=== PATIENT | female | born 1955 | race Caucasian/White ===

== ENCOUNTER 2022-08-21 17:31 | Emergency (ER) | payer MEDICARE, MEDICAID ==
[~2022-08-21] VITALS: Ht 177 cm; Wt 61.2 kg
[~2022-08-21 17:31] MED LIST: ACHD5005 PO; OMEP10CA2 PO; ONDN4T PO; Oxycodone Hcl/Acetaminophen PO
[2022-08-21] MEDS ORDERED: ONDANSETRON 4 MG/2 ML (SDV) Z0FRAN IVP ONE (17:45)
[2022-08-21 17:58] LABS: BASOPHILS % (AUTO) 1 % (0-10); EOSINOPHILS # (AUTO) 0.1 10^3/uL (0.0-0.3); EOSINOPHILS % (AUTO) 1 % (0-10); HEMATOCRIT 36 % (35-52); HEMOGLOBIN 11.4 g/dL (11.5-16.0); LYMPHOCYTES # (AUTO) 1.2 10^3/uL (1.0-4.0); LYMPHOCYTES % (AUTO) 15 % (12-44); MEAN CORPUSCULAR HEMOGLOBIN 29 pg (25-34); MEAN CORPUSCULAR HGB CONC 32 g/dL (32-36); MEAN CORPUSCULAR VOLUME 91 fL (80-99); MEAN PLATELET VOLUME 10.3 fL (9.0-12.2); MONOCYTES # (AUTO) 0.5 10^3/uL (0.0-1.0); MONOCYTES % (AUTO) 6 % (0-12); NEUTROPHILS # (AUTO) 6.2 10^3/uL (1.8-7.8); NEUTROPHILS % (AUTO) 78 % (42-75); PLATELET COUNT 392 10^3/uL (130-400)
[2022-08-21 18:08] LABS: POTASSIUM 3.9 MMOL/L (3.6-5.0)
[2022-08-21 18:10] LABS: CALCIUM 9.7 MG/DL (8.5-10.1)
[2022-08-21 18:11] LABS: TOTAL PROTEIN 8.1 GM/DL (6.4-8.2)
[2022-08-21 18:14] LABS: CREATININE SERUM 1.4 MG/DL (0.60-1.30)
[2022-08-21] MEDS ORDERED: morphine INJ 10 MG/ML 1ML (SYR OR VIAL) IVP STA (18:20)
--- NOTE | 2022-08-21 18:20 | ED GI ---
General Chief Complaint: Abdominal/GI Problems Stated Complaint: ABD PAIN - BILAT FEET PAIN Nursing Triage Note: PT C/O ABD PAIN AND N/V ONSET 3 MONTHS AGO, WORSE RECENTLY. PT ALSO C/O BILATERAL FOOT PAIN ONSET 1 YEAR AGO. PT HAS NOT SEEN A DOCTOR FOR HER S/S. Source of Information: Patient Exam Limitations: No Limitations History of Present Illness Date Seen by Provider: Aug 21, 2022 Time Seen by Provider: 17:40 Initial Comments Patient is a 66-year-old female who presents to the emergency department for evaluation of vomiting, abdominal pain, bilateral foot pain. Patient initially states the symptoms are new but upon further questioning states she has had intermittent nausea and vomiting for over 3 months and the bilateral foot pain for 1 year. Patient has not seen a medical provider for the symptoms. She fe els like the symptoms have been progressively worsening. She has not taken any medicines for the symptoms. She denies taking any daily medications on a regular basis. Patient denies any fever. Allergies and Home Medications Allergies Coded Allergies: No Known Drug Allergies (Unverified , 09/29/14) Patient Home Medication List Home Medication List Reviewed: Yes Hydrocodone Bit/Acetaminophen (Lortab 5 Mg Tablet) 1 Each Tablet, 1 EACH PO Q4H PRN for PAIN Prescribed by: GOSIA DOOLEY on 01/07/16 1038 Hydrocodone Bit/Acetaminophen (Lortab 5 Mg Tablet) 1 Each Tablet, 1 EACH PO Q4H PRN for PAIN Prescribed by: GOSIA DOOLEY on 01/07/16 1105 Ibuprofen (Ibuprofen) 600 Mg Tablet, 600 MG PO Q8H PRN for PAIN-MILD Prescribed by: Agustina Contreras on 08/21/221958 Ondansetron (Ondansetron Odt) 4 Mg Tab.rapdis, 4 MG SL Q4H PRN for NAUSEA/VOMITING Prescribed by: Agustina Contreras on 08/21/221958 Ondansetron HCl (Zofran) 4 Mg Tab, 4 MG PO Q6hr Prescribed by: GOSIA DOOLEY on 01/07/16 1040 Review of Systems Review of Systems Constitutional: no symptoms reported EENTM: No Symptoms Reported Respiratory: No Symptoms Reported Cardiovascular: No Symptoms Reported Gastrointestinal: See HPI, Abdominal Pain, Nausea, Vomiting Genitourinary: No Symptoms Reported Musculoskeletal: no symptoms reported Skin: no symptoms reported Psychiatric/Neurological: No Symptoms Reported Endocrine: No Symptoms Reported Hematologic/Lymphatic: No Symptoms Reported Past Lzzoiyp-Uqmljx-Afcwdz Hx Patient Social History Tobacco Use?: No Use of E-Cig and/or Vaping dev: No Substance type: Marijuana Alcohol Use?: No Pt feels they are or have been: No Immunizations Up To Date Tetanus Booster (TDap): Less than 5yrs PED Vaccines UTD: Yes First/Initial COVID19 Vaccinat: DENIES Seasonal Allergies Seasonal Allergies: No Past Medical History Orthopedic Reproductive Disorders: No (complete menopause) Female Reproductive Disorders: Denies Sexually Transmitted Disease: No HIV/AIDS: No Kidney Infection, UTI-Chronic Gastroesophageal Reflux Fractures Loss of Vision: Denies Hearing Impairment: Denies PTSD Adverse Reaction/Blood Tranf: No Family Medical History Anxiety disorder 19 MOTHER FH: sleep apnea G8 BROTHER Lung mass 19 FATHER ( at 79) Thyroid disease 19 MOTHER (iodine treatment) Physical Exam Vital Signs Vital Signs - First Documented 08/21/22 17:35 Temp 36.4 Pulse 64 Resp 18 B/P (MAP) 134/98 (110) Pulse Ox 97 O2 Delivery Room Air Capillary Refill : Height/Weight/BMI Height: 5'10.00" Weight: 150lbs. 4.0oz. 68.844520gd; 19.00 BMI Method:Stated General Appearance: WD/WN, no apparent distress HEENT: PERRL/EOMI, normal ENT inspection, TMs normal, pharynx normal Neck: non-tender, full range of motion, supple, normal inspection Respiratory: chest non-tender, lungs clear, normal breath sounds Cardiovascular: regular rate, rhythm Gastrointestinal: normal bowel sounds, non tender, soft Extremities: normal range of motion, non-tender Neurologic/Psychiatric: no motor/sensory deficits, alert, normal mood/affect, oriented x 3 Skin: normal color, warm/dry Progress/Results/Core Measures Results/Orders Lab Results Laboratory Tests Test 08/21/22 17:44 08/21/22 20:03 Range/Units White Blood Count 8.0 4.3-11.0 10^3/uL Red Blood Count 3.92 3.80-5.11 10^6/uL Hemoglobin 11.4 L 11.5-16.0 g/dL Hematocrit 36 35-52 % Mean Corpuscular Volume 91 80-99 fL Mean Corpuscular Hemoglobin 29 25-34 pg Mean Corpuscular Hemoglobin Concent 32 32-36 g/dL Red Cell Distribution Width 14.0 10.0-14.5 % Platelet Count 392 130-400 10^3/uL Mean Platelet Volume 10.3 9.0-12.2 fL Immature Granulocyte % (Auto) 0 % Neutrophils (%) (Auto) 78 H 42-75 % Lymphocytes (%) (Auto) 15 12-44 % Monocytes (%) (Auto) 6 0-12 % Eosinophils (%) (Auto) 1 0-10 % Basophils (%) (Auto) 1 0-10 % Neutrophils # (Auto) 6.2 1.8-7.8 10^3/uL Lymphocytes # (Auto) 1.2 1.0-4.0 10^3/uL Monocytes # (Auto) 0.5 0.0-1.0 10^3/uL Eosinophils # (Auto) 0.1 0.0-0.3 10^3/uL Basophils # (Auto) 0.0 0.0-0.1 10^3/uL Immature Granulocyte # (Auto) 0.0 0.0-0.1 10^3/uL Sodium Level 141 135-145 MMOL/L Potassium Level 3.9 3.6-5.0 MMOL/L Chloride Level 102 98-107 MMOL/L Carbon Dioxide Level 26 21-32 MMOL/L Anion Gap 13 5-14 MMOL/L Blood Urea Nitrogen 33 H 7-18 MG/DL Creatinine 1.40 H 0.60-1.30 MG/DL Estimat Glomerular Filtration Rate 41 BUN/Creatinine Ratio 24 Glucose Level 75 70-105 MG/DL Calcium Level 9.7 8.5-10.1 MG/DL Corrected Calcium 9.7 8.5-10.1 MG/DL Total Bilirubin 1.0 0.1-1.0 MG/DL Aspartate Amino Transf (AST/SGOT) 26 5-34 U/L Alanine Aminotransferase (ALT/SGPT) 17 0-55 U/L Alkaline Phosphatase 90 40-136 U/L Total Protein 8.1 6.4-8.2 GM/DL Albumin 4.0 3.2-4.5 GM/DL Lipase 68 8-78 U/L Urine Color YELLOW Urine Clarity SL CLOUDY Urine pH 7.5 5-9 Urine Specific Banco 1.020 1.016-1.022 Urine Protein 1+ H NEGATIVE Urine Glucose (UA) NEGATIVE NEGATIVE Urine Ketones NEGATIVE NEGATIVE Urine Nitrite POSITIVE H NEGATIVE Urine Bilirubin NEGATIVE NEGATIVE Urine Urobilinogen 2.0 < = 1.0 MG/DL Urine Leukocyte Esterase 1+ H NEGATIVE Urine RBC (Auto) NEGATIVE NEGATIVE Urine RBC 0-2 /HPF Urine WBC 5-10 H /HPF Urine Squamous Epithelial Cells 10-25 H /HPF Urine Crystals NONE /LPF Urine Bacteria LARGE H /HPF Urine Casts NONE /LPF Urine Mucus NEGATIVE /LPF Urine Culture Indicated YES My Orders Orders - AGUSTINA CONTRERAS MINER Cbc With Automated Diff (08/21/22 17:45) Comprehensive Metabolic Panel (08/21/22 17:45) Urinalysis (08/21/22 17:45) Lipase (08/21/22 17:45) Iv/Invasive Line Insertion .IV INSERT (08/21/22 17:45) Ondansetron Injection (Zofran Injectio (08/21/22 17:45) Promethazine Injection (Phenergan Injec (08/21/22 18:30) Morphine Injection (Morphine Injection (08/21/22 18:20) Urine Culture (08/21/22 20:03) Medications Given in ED Current Medications Medications Dose Ordered Sig/Amber Route Start Time Stop Time Status Last Admin Dose Admin Ondansetron HCl 4 mg ONCE ONCE IVP 08/21/22 17:45 08/21/22 17:46 DC 08/21/22 17:50 4 MG Promethazine HCl 25 mg ONCE ONCE IVP 08/21/22 18:30 08/21/22 18:31 DC 08/21/22 18:27 25 MG Vital Signs/I&O 08/21/22 17:35 Temp 36.4 Pulse 64 Resp 18 B/P (MAP) 134/98 (110) Pulse Ox 97 O2 Delivery Room Air Blood Pressure Mean: 110 Progress Progress Note : Progress Note Patient is nontoxic and well-hydrated on exam. Abdominal exam is benign with no focal provocation of pain on palpation. No abdominal distention or rigidity appreciated. Patient denies any abdominal pain at this time states she is very nauseous. She also states her bilateral feet are hurting. No significant dependent edema noted in the feet. No open wounds appreciated. Patient appears to have intact sensation with good DP pulses bilaterally. Patient began retching repeatedly shortly after the conclusion of my exam. Orders placed for a CBC, CMP, lipase, IV insertion, and urinalysis. An order of 1 L LR bolus placed. Patient was also initially given a dose of Zofran. This did not seem to alleviate her vomiting and thus she was given a dose of Phenergan as well as a modest dose of morphine to help with her pain. This seemed to help her vomiting. CBC is unremarkable. Specifically there is no leukocytosis or other concerning dyscrasias. CMP is also reassuring other than mild elevation in BUN and creatinine. Lipase is not elevated. Patient was unable to provide a urine sample at this time I have low suspicion for urinary tract infection. She does not appear clinically markedly dehydrated on exam. Will discharge home with recommendations for supportive care and follow-up with PCP for further evaluation of her chronic symptoms. Patient will be discharged home with prescription for ibuprofen and Zofran ODT. Return precautions for urgent symptomology discussed. Patient verbalized understanding. Just prior to discharge patient was able to provide a urine specimen. Patient will not be held in the ER to await these results as I have low suspicion for any significant infection. Review of urinalysis results, patient does have mild pyuria and large bacteria and what is likely a contaminated specimen given large amount of squamous epit helial cells in the specimen not being a true clean-catch. We will await culture results to inform necessity for antimicrobial therapy. Departure Impression Primary Impression: Nausea and vomiting Qualified Codes: R11.2 - Nausea with vomiting, unspecified Additional Impression: Chronic foot pain Qualified Codes: M79.673 - Pain in unspecified foot; G89.29 - Other chronic pain Disposition: 01 HOME, SELF-CARE Condition: Stable Departure-Patient Inst. Decision time for Depature: 19:55 Referrals: NO,LOCAL PHYSICIAN (PCP/Family) Primary Care Physician Patient Instructions: Nausea and Vomiting, Adult ED, Chronic Pain (DC) Scripts Ondansetron (Ondansetron Odt) 4 Mg Tab.rapdis 4 MG SL Q4H PRN for NAUSEA/VOMITING for 5 Days, #20 TAB 0 Refills Prov: AGUSTINA CONTRERAS MINER 08/21/22 Ibuprofen (Ibuprofen) 600 Mg Tablet 600 MG PO Q8H PRN for PAIN-MILD for 5 Days, #15 TAB 0 Refills Prov: AGUSTINA CONTRERAS MINER 08/21/22 AGUSTINA CONTRERAS APRN Aug 21, 2022 18:20
[2022-08-21] MEDS ORDERED: PROMETHAZINE INJ 25 MG/ML (PHENERGAN) AMP IVP ONE (18:30)
[2022-08-21] MEDS ORDERED: IBUP-1773 PO (19:59)
[2022-08-21] MEDS ORDERED: ONDA4TAB11 SL (19:59)
[2022-08-21 20:13] LABS: BILIRUBIN,URINE NEGATIVE (NEGATIVE); CLARITY,URINE SL CLOUDY; COLOR,URINE YELLOW; GLUCOSE, URINE (UA) NEGATIVE (NEGATIVE); KETONES,URINE NEGATIVE (NEGATIVE); LEUKOCYTE ESTERASE ,URINE 1+ (NEGATIVE); NITRITE,URINE POSITIVE (NEGATIVE); PH,URINE 7.5 (5-9); PROTEIN,URINE 1+ (NEGATIVE)
[2022-08-21 20:21] LABS: BACTERIA,URINE LARGE /HPF
[2022-08-21 20:22] LABS: RBC,URINE 0-2 /HPF
[2022-08-21 20:28] VITALS: BP 127/74
== END 2022-08-21 20:28 | disposition home or self-care (01) ==
LOC: EDUNIT# 17:31 → ER 17:32
DX: R11.2 Nausea with vomiting, unspecified (principal); M79.672 Pain in left foot; M79.671 Pain in right foot; G89.29 Other chronic pain; R82.81 Pyuria; R79.89 Other specified abnormal findings of blood chemistry; R82.71 Bacteriuria
CPT/HCPCS: 36415; 80053; 81000; 83690; 85025; 87077; 87088; 87186

== ENCOUNTER 2023-04-08 05:34 | Outpatient (CLI) | payer MEDICARE, MEDICAID ==
[~2023-04-08] VITALS: Ht 177.8 cm; Wt 59.1 kg
[~2023-04-08 05:34] MED LIST changes: +IBUP-1773 PO; +ONDA4TAB11 SL
== END 2023-04-08 11:14 | disposition home or self-care (01) ==
LOC: PREOP 05:34
PROVIDERS: ATTEND Specialist
DX: Z01.818 Encounter for other preprocedural examination (principal)

== ENCOUNTER 2023-04-30 08:49 | Day surgery (SDC) | payer MEDICARE, MEDICAID ==
[~2023-04-30] VITALS: Ht 177.8 cm; Wt 56.8 kg
[2023-04-30 09:00] VITALS: BP 127/90
[2023-04-30] MEDS ORDERED: LIDOCAINE PF 1% 2 ML VIAL IR PRN (09:00)
[2023-04-30] MEDS ORDERED: POVIDONE IODINE OPHTH SOLN 5% 30 ML OP ONE (09:00)
[2023-04-30] MEDS ORDERED: MOXIFLOXACIN OPHTH SOLN 5 MG/ML 0.5 ML SYRINGE OP ONE (09:00)
[2023-04-30] MEDS ORDERED: TIMOLOL 0.5% (CATARACTS) 0.3 ML BTL OU PRN (09:00)
[2023-04-30] MEDS: TETRACAINE 0.5% OPHTH SOLN 4 ML BTL (SINGLE DOSE ONLY) OU PRN ×4 (09:01→09:18)
[2023-04-30] MEDS: TROPICAMIDE 1% OPH SOLN (MYDRIACYL) 15 ML BTL OP SCH ×3 (09:08→09:19)
[2023-04-30] MEDS: PHENYLEPHRINE 10% OPHTH SOLN 5 ML BTL OU SCH ×3 (09:08→09:19)
--- NOTE | 2023-04-30 09:28 | Ophthalmologist Pre-Op Note ---
Pre-Operative Progress Note H&P Reviewed The H&P was reviewed, patient examined and no changes noted. Date H&P Reviewed: Apr 30, 2023 Time H&P Reviewed: 09:28 Pre-Op Dx Cataract, Left Eye VERN HAYES MD Apr 30, 2023 09:28
[2023-04-30] MEDS ORDERED: MIDAZOLAM INJ 2 MG/2 ML VIAL ONE (09:30)
--- NOTE | 2023-04-30 09:47 | Ophthalmology Operative Report ---
Cataract removal/placement IOL PREOPERATIVE DIAGNOSIS: Cataract Left Eye POSTOPERATIVE DIAGNOSIS: Cataract Left Eye PROCEDURE: Cataract removal and placement of posterior chamber implant, left eye SURGEON: Young Hayes ANESTHESIA: Topical with sedation COMPLICATIONS: None ESTIMATED BLOOD LOSS: Minimal DESCRIPTION OF PROCEDURE: After proper informed consent was obtained, the patient, a 67 female, was taken to the Operating Room and the left eye was anesthetized with tetracaine. The left eye was then prepped and draped in the usual manner. A wire lid speculum was placed. A paracentesis was made at the left hand position. Preservative free lidocaine was injected into the anterior chamber followed by viscoelastic. A clear corneal incision was made in the temporal position. A capsulorrhexis was preformed and the central nuclear and cortical material were removed. The posterior capsule was polished and an Octavio 19.5 [id number] was placed into the capsular bag. The residual viscoelastic was aspirated and balanced saline solution was injected into the anterior chamber. Moxifloxacin was injected into the anterior chamber. The wound was checked and found to be water tight. The patient tolerated the procedure well without complications. YOUNG HAYES MD Apr 30, 2023 09:47
[2023-04-30 09:54] VITALS: BP 138/75
--- NOTE | 2023-04-30 12:12 | Anesthesia-General Post-Op ---
MAC Patient Condition Mental Status/LOC: Same as Preop Cardiovascular: Satisfactory Nausea/Vomiting: Absent Respiratory: Satisfactory Pain: Controlled Complications: Absent Post Op Complications Complications None Follow Up Care/Instructions Patient Instructions None needed. Anesthesiology Discharge Order Discharge Order Patient was doing well this morning after the procedure with no complaints, stable vital signs, no apparent adverse anesthesia problems. No complications reported per nursing. JOSHUA CURRIE DO Apr 30, 2023 12:12
== END 2023-04-30 09:56 | disposition home or self-care (01) ==
LOC: SDC 08:49
PROVIDERS: ATTEND Specialist
DX: H25.9 Unspecified age-related cataract (principal)
CPT/HCPCS: 66984; V2632